=== PATIENT | female | born 1955 | race Caucasian/White ===

== ENCOUNTER → 2016-09-14 | Outpatient (CLI) | payer MEDICAID | END | disposition home or self-care (01) | LOC: MAMMO 08:14 | PROVIDERS: ATTEND Specialist | DX: Z12.31 Encounter for screening mammogram for malignant neoplasm of breast (principal); C50.919 Malignant neoplasm of unspecified site of unspecified female breast | CPT/HCPCS: G0206 ==

== ENCOUNTER → 2016-09-23 | Day surgery (SDC) | payer MEDICAID ==
[~2016-09-23] MED LIST: LIDOCAINE HCL/EPINEPHRINE 1%-EPI 1:100,000 30 ML VIAL INFIL ONE; SODIUM BICARBONATE 4.2% 5 MEQ/10 ML DISP.SYRIN IV ONE; SODIUM CHLORIDE 0.9% 10ML VIAL ONE
== END | disposition home or self-care (01) ==
LOC: RAD 09-21 08:15
PROVIDERS: ATTEND Specialist
DX: C50.911 Malignant neoplasm of unspecified site of right female breast (principal)
CPT/HCPCS: 19081; 88305; A4216; A4648; J3490

== ENCOUNTER → 2017-02-07 | Day surgery (SDC) | payer MEDICAID ==
[~2017-02-07] MED LIST changes: +SODIUM BICARBONATE 4% (2.4MEQ) 5ML VIAL IV ONE; -SODIUM BICARBONATE 4.2% 5 MEQ/10 ML DISP.SYRIN IV ONE; -SODIUM CHLORIDE 0.9% 10ML VIAL ONE; +STERILE WATER FOR INJECTION 10ML VIAL ONE
== END | disposition home or self-care (01) ==
LOC: RAD 07:16
PROVIDERS: ATTEND Specialist
DX: R92.1 Mammographic calcification found on diagnostic imaging of breast (principal)
CPT/HCPCS: 19081; 88305; A4216; A4648; J3490

== ENCOUNTER → 2017-04-12 | Outpatient (CLI) | payer MEDICAID | END | disposition home or self-care (01) | LOC: NM 08:40 | PROVIDERS: ATTEND Specialist | DX: C79.51 Secondary malignant neoplasm of bone (principal); C50.911 Malignant neoplasm of unspecified site of right female breast; I10 Essential (primary) hypertension; E11.9 Type 2 diabetes mellitus without complications; E01.2 Iodine-deficiency related (endemic) goiter, unspecified | CPT/HCPCS: 78306; A9503 ==

== ENCOUNTER → 2017-07-27 | Outpatient (CLI) | payer MEDICAID | END | disposition home or self-care (01) | LOC: MAMMO 09:11 | PROVIDERS: ATTEND Specialist | DX: R92.1 Mammographic calcification found on diagnostic imaging of breast (principal); N63.20 Unspecified lump in the left breast, unspecified quadrant | CPT/HCPCS: 77065 ==

== ENCOUNTER → 2017-08-17 | Outpatient (CLI) | payer MEDICAID | END | disposition home or self-care (01) | LOC: MAMMO 07:34 | PROVIDERS: ATTEND Specialist | DX: R92.1 Mammographic calcification found on diagnostic imaging of breast (principal) | CPT/HCPCS: 76641; 77065 ==

== ENCOUNTER → 2018-01-10 | Outpatient (CLI) | payer MEDICAID ==
[~2018-01-10] MED LIST changes: -LIDOCAINE HCL/EPINEPHRINE 1%-EPI 1:100,000 30 ML VIAL INFIL ONE; +LIDOCAINE HCL/PF 1% 10 MG/ML 5ML VIAL ONE; -STERILE WATER FOR INJECTION 10ML VIAL ONE
[2018-01-10 10:26] LABS: BASOPHILS % 1.2 % (0.0-2.0); EOSINOPHILS % 7.4 % (0.0-5.0); HEMATOCRIT. 33.7 % (36.0-48.0); HEMOGLOBIN. 11.5 g/dL (12.0-16.0); LYMPHOCYTES % 30.8 % (20.0-50.0); MEAN CORPUSCULAR HEMOGLOBIN 29.2 pg (28.0-32.0); MEAN CORPUSCULAR VOLUME 85.5 fL (81.0-99.0); MEAN PLATELET VOLUME 8.4 fl (7.4-10.4); MONOCYTES % 6.4 % (2.0-8.0); NEUTROPHILS % 54.2 % (40.0-76.0); PLATELET 209 x1000/uL (130-400); RED BLOOD CELL COUNT 3.95 mill/uL (4.2-5.4); RED CELL DISTRIBUTION WIDTH 13.3 % (11.6-14.6)
[2018-01-10 10:32] LABS: CHLORIDE 105 mEq/L (98-107)
[2018-01-10 10:35] LABS: INR 1.1; PARTIAL THROMBOPLASTIN TIME 28.1 sec (23.4-31.0); PROTHROMBIN TIME 11.3 sec (9.4-11.6)
== END | disposition home or self-care (01) ==
LOC: NM 07:40
PROVIDERS: ATTEND Specialist
DX: C50.919 Malignant neoplasm of unspecified site of unspecified female breast (principal); R41.82 Altered mental status, unspecified
CPT/HCPCS: 36415; 70450; 76536; 76942; 78306; 80053; 85025; 85610; 85730; A9503; J3490; 88305

== ENCOUNTER → 2018-02-06 | Day surgery (SDC) | payer MEDICAID ==
[2018-02-06] VITALS (17 sets, daily range): BP systolic 103–125; BP diastolic 52–67
[~2018-02-06] VITALS: Ht 157.5 cm; Wt 68.9 kg
[~2018-02-06] MED LIST changes: +AMLO10TA80 PO; +CEFAZOLIN 1000MG PREMIX 50 ML IV ONE; +CEFAZOLIN 1000MG PREMIX 50 ML IV SCH; +FENTANYL CITRATE/PF 50MCG/ML 2ML VIAL IV ONE; +FENTANYL CITRATE/PF 50MCG/ML 2ML VIAL IV SCH; +FENTANYL CITRATE/PF 50MCG/ML 2ML VIAL ONE; +GLIP10TA10 PO; +LABE200T28 PO; +LIDOCAINE HCL 1% 20ML VIAL (Pyxis) INJ ONE; +LIDOCAINE HCL/EPINEPHRINE 1%-EPI 1:100,000 20 ML VIAL ONE; -LIDOCAINE HCL/PF 1% 10 MG/ML 5ML VIAL ONE; +LISI-604 PO; +METF850T2 PO; +TEMA30CA PO
== END | disposition home or self-care (01) ==
LOC: ANGIO 08:55
PROVIDERS: ATTEND Specialist
DX: C78.01 Secondary malignant neoplasm of right lung (principal); C78.02 Secondary malignant neoplasm of left lung; Z85.3 Personal history of malignant neoplasm of breast; Z79.899 Other long term (current) drug therapy; Z90.11 Acquired absence of right breast and nipple; Z90.49 Acquired absence of other specified parts of digestive tract
CPT/HCPCS: 36561; 76937; 77001; 82962; C1788; C1887; J0690; J3010; J3490; J7040; J7050; 36558; 99152; 99153; L8514